=== PATIENT | male | born 1955 | race Caucasian/White ===

== ENCOUNTER 2020-03-22 20:51 | Emergency (ER) | payer BC, OTHER ==
--- NOTE | 2020-03-22 21:03 | EDM.PDOC ---
ED HPI GENERAL MEDICAL PROBLEM - General Chief Complaint: Wound Recheck Stated Complaint: RT ARM LACERATION STITCHES POSSIBLY INFECTED Time Seen by Provider: 03/22/20 21:02 Source of Information: Reports: Patient History Limitations: Reports: No Limitations - History of Present Illness INITIAL COMMENTS - FREE TEXT/NARRATIVE: 64-year-old male presents to the ED for evaluation of a sutured laceration to his right extensor surface of his forearm that was done on March 11 elsewhere. The wound is biting and hurting him a bit and he was concerned there may be an infective process brewing. He has no systemic signs of illness such as fever chills nausea vomiting or maladies. He has been placing Vaseline on the wound but no topical antibiotic therapy. Onset Date: 03/11/20 Duration: Day(s):, Constant Location: Reports: Upper Extremity, Right (Laceration right mid extensor surface of forearm that has been sutured 10 days ago.) Quality: Reports: Ache, Burning Severity: Mild Improves with: Reports: None Worsens with: Reports: Other Context: Reports: Trauma. Denies: Activity, Exercise, Lifting, Sick Contact, Other Associated Symptoms: Reports: No Other Symptoms (Piece of beveled because the initial laceration) Treatments ARTISTS' MODEL: Reports: Other (see below) (None.) Right Lower Arm Pain Score (Numeric/FACES): 4 - Related Data Allergies Allergy/AdvReac Type Severity Reaction Status Date / Time No Known Allergies Allergy Verified 03/22/20 21:04 Home Meds: Home Meds Pravastatin [Pravachol] 20 mg PO DAILY 03/22/20 [History] Social & Family History - Living Situation & Occupation Living situation: Reports: Occupation: Employed ED ROS GENERAL - Review of Systems Review Of Systems: See Below Constitutional: Reports: No Symptoms HEENT: Reports: Glasses Respiratory: Reports: No Symptoms Cardiovascular: Reports: No Symptoms Endocrine: Reports: No Symptoms GI/Abdominal: Reports: No Symptoms : Reports: No Symptoms Musculoskeletal: Reports: Other (He said laceration extensor surface of mid right forearm) Skin: Reports: Other (Wound that has been sutured right mid extensor surface of forearm is biting and pinching a little bit.) Neurological: Reports: No Symptoms Psychiatric: Reports: No Symptoms Hematologic/Lymphatic: Reports: No Symptoms Immunologic: Reports: No Symptoms ED EXAM, SKIN/RASH Exam: See Below Exam Limited By: No Limitations General Appearance: Alert, WD/WN, No Apparent Distress, Other (Temperature is 36.8 with a heart rate of 50. Respiratory is 18 BP is 137/92 with O2 sats of 99% room air.) Eye Exam: Bilateral Eye: Normal Inspection, PERRL Extremities: Other (Evaluation was limited to the sutured laceration right extensor surface of forearm. The wound is approximately 2.5 cm in length and appears to be healing adequately. There is some erythema along the suture margins. There is no fluctuation or obvious pus and no increased warmth to touch.) Psychiatric: Normal Affect, Normal Mood Skin: Warm, Dry, Intact, Normal Color Course - Vital Signs Last Recorded V/S: Last Vital Signs Temp 36.8 C 03/22/20 20:58 Pulse 50 L 03/22/20 20:58 Resp 18 03/22/20 20:58 BP 137/92 H 03/22/20 20:58 Pulse Ox 99 03/22/20 20:58 - Radiology Interpretation Free Text/Narrative:: Next a 4-year-old male presents to the ED for evaluation of a sutured laceration mid right extensor surface of forearm that he had repaired elsewhere on 11 March. He states the wound has become somewhat more erythematous and is biting and pinching a bit more than usual and he was concerned there may be an infective process developing. However on my assessment the wound appears to be healing adequately. There is no increased swelling obvious pus or increased warmth to suggest an infective process. Patient reassured. He has been using Vaseline topically on the wound and I have advised him to switch to bacitracin ointment until sutures are removed on as he had been told to do so. Departure - Departure Time of Disposition: 21:02 Disposition: Home, Self-Care 01 Condition: Fair Clinical Impression: Encounter for re-check of laceration wound - Discharge Information *PRESCRIPTION DRUG MONITORING PROGRAM REVIEWED*: Not Applicable *COPY OF PRESCRIPTION DRUG MONITORING REPORT IN PATIENT [facility]: Not Applicable Referrals: Dae Osullivan MD [Primary Care Provider] - Forms: ED Department Discharge Additional Instructions: Evaluation of right forearm laceration with suture repair done last week. Erythematous along the wound edges but no active evidence of an infection such as increased warmth swelling or obvious pus. Suggest placing topical antibiotic on the wound such as bacitracin which we provided to you. This should be placed at least once daily and sometimes needs to be placed twice daily to prevent secondary wound infection. Time no signs of infection are evident but there is a reaction to the suture material itself. Follow-up next week as planned to have the sutures removed on . Sepsis Event Note (ED) - Focused Exam Vital Signs: Vital Signs Temp Pulse Resp BP Pulse Ox 03/22/20 20:58 36.8 C 50 L 18 137/92 H 99
== END 2020-03-22 21:08 | disposition home or self-care (01) ==
LOC: JD.ED 20:51
DX: Z48.01 Encounter for change or removal of surgical wound dressing (principal); Z79.899 Other long term (current) drug therapy
CPT/HCPCS: 99282

== ENCOUNTER 2022-05-26 09:24 | Emergency (ER) | payer OTHER ==
[2022-05-26] MEDS ORDERED: Acetaminophen 325 MG Tab PO ONE (10:02)
== END 2022-05-26 11:50 | disposition home or self-care (01) ==
LOC: JD.ED 09:24
DX: S89.91XA Unspecified injury of right lower leg, initial encounter (principal); Z79.899 Other long term (current) drug therapy; W20.8XXA Other cause of strike by thrown, projected or falling object, initial encounter; Y92.69 Other specified industrial and construction area as the place of occurrence of the external cause
CPT/HCPCS: 73564; 99283; A9270

== ENCOUNTER 2023-05-22 15:51 | Emergency (ER) | payer OTHER, BC ==
[2023-05-22] MEDS: Lidocaine 1% 10 ML MDV INJECT ONE ×2 (18:04→19:57)
== END 2023-05-22 19:59 | disposition home or self-care (01) ==
LOC: JD.ED 15:51
DX: S51.012A Laceration without foreign body of left elbow, initial encounter (principal); S80.12XA Contusion of left lower leg, initial encounter; M25.512 Pain in left shoulder; E78.00 Pure hypercholesterolemia, unspecified; Z79.899 Other long term (current) drug therapy; V23.49XA Other motorcycle driver injured in collision with car, pick-up truck or van in traffic accident, initial encounter; Y92.410 Unspecified street and highway as the place of occurrence of the external cause
CPT/HCPCS: 12002; 73030-26-LT; 73030-LT; 73590-26-RT; 73590-RT; 99283; J3490